=== PATIENT | male | born 1965 | race Caucasian/White ===

== ENCOUNTER 2024-04-19 08:09 | Emergency (ER) | payer SELFPAY | END 2024-04-19 11:07 | disposition home or self-care (01) | LOC: MW.ED 08:09 | DX: S83.91XA Sprain of unspecified site of right knee, initial encounter (principal); X58.XXXA Exposure to other specified factors, initial encounter | CPT/HCPCS: 73562-26-RT; 73562-RT; 93971-26-RT; 93971-RT; 99284 ==